=== PATIENT | female | born 1945 | race Caucasian/White ===

== ENCOUNTER → 2019-03-15 | Outpatient (CLI) | payer MEDICARE ==
--- NOTE | 2019-03-15 10:50 | KCIC ---
MRI Lumbar Spine without contrast History: Low back pain, radiculopathy, bilateral hip pain Technique: Multiplanar, multi sequential noncontrast MR imaging was performed of the lumbar spine. Comparison: None Findings: Lumbar vertebral body stature is maintained. There is negligible anterior spondylolisthesis at L3-4. Conus terminates at the superior aspect of L1. There is variable mild degenerative disc disease L2-3 through L4-5, mild disc desiccation L5-S1 and L1-2. There is hemangioma of the left L3 vertebral body. There are annular tears anteriorly at L2-3 and posteriorly at L2-3 and L3-4. There is very mild amorphous edema of the right L3 and L4 pedicles probably reactive/degenerative in etiology. There is right extrarenal pelvis/pelviectasis. L1-L2: This level was not included on the axial images, neural foramina and spinal canal overall adequate. L2-L3: There is negligible disc osteophyte complex and bulge, mild indentation upon the ventral thecal sac greater in the far lateral recesses left greater than right. There is prominence of posterior epidural fat centrally. There is mild facet degenerative change and buckling of the ligamentum flavum. Spinal canal is overall adequate. Neural foramina are adequate. L3-L4: There is prominence of posterior epidural fat centrally. There is mild to moderate left facet degenerative change, minimally on the right. There is mild buckling of the ligamentum flavum. There is negligible disc osteophyte complex and bulge. Neural foramina are adequate. There is mild attenuation of the thecal sac from posterior epidural lipomatosis. L4-L5: There is negligible disc osteophyte complex. There is mild buckling of the ligamentum flavum. There is mild left facet hypertrophic change. There is very mild narrowing of the far left lateral recess. Neural foramina are adequate. L5-S1: Spinal canal and neural foramina are adequate. There is negligible disc osteophyte complex. There is minimal facet degenerative change greater on the left. Impression: 1. There is no significant lumbar spinal stenosis or neural foramina compromise. There is multilevel mild degenerative disc disease L2-3 through L4-5, very mild spondylosis. There is multilevel facet degenerative change, negligible anterior spondylolisthesis L3-4. Electronically signed by: Kee Mcrae MD (03/15/2019 10:47 AM) [id number]
== END | disposition home or self-care (01) ==
LOC: KCIC MRI 09:17
PROVIDERS: ATTEND Family Medicine
DX: M51.16 Intervertebral disc disorders with radiculopathy, lumbar region (principal); M47.26 Other spondylosis with radiculopathy, lumbar region; M89.38 Hypertrophy of bone, other site
CPT/HCPCS: 72148

== ENCOUNTER → 2019-03-30 | Outpatient (CLI) | payer MEDICARE, BC ==
--- NOTE | 2019-03-30 12:06 | KCIC ---
DUPLEX LOWER EXTREMITY BILAT Indication: Hypertension. Hyperlipidemia Comparison: None. Procedure: Real-time grayscale, color flow Doppler, and Doppler spectral waveform analysis of the arterial system of the lower extremity is performed. Findings: Monophasic waveforms throughout the bilateral lower extremity arterial system. No evidence of velocity elevation. Atheromatous plaque throughout the bilateral lower extremities. IMPRESSION: 1. Monophasic waveforms throughout the bilateral lower extremity arterial system, indicating proximal stenosis. Electronically signed by: Ramez Chavez DO (03/30/2019 12:03 PM) [facility]
--- NOTE | 2019-03-30 12:10 | KCIC ---
SCAN OF ABDOMINAL AORTA, RENAL BILAT RENAL DUPLEX CO History: Hypertension. Hyperlipidemia Comparison: None. Technique: Multiple grayscale, color flow, and Doppler spectral waveform analysis images of the abdominal aorta and renal arteries were obtained. Findings: Abdominal aorta peak systolic velocity: 71.3 cm/sec. Right main renal artery peak systolic velocity: 177 cm/sec. Right renal artery to aorta ratio: 2.48 Left main renal artery peak systolic velocity: 164 cm/sec. Left renal artery to aorta ratio: 2.3 Renal veins are patent. IVC unremarkable. The right kidney measures 11.3 x 5 x 5.4 cm. The left kidney measures 12.1 x 4.9 x 6.2 cm. Kidneys are normal in echotexture. No hydronephrosis. Elevated bilateral renal artery resistive indices 0.8 on the right and 0.82 on the left Proximal aorta measures 2.4 cm distal aorta measures 2.37 m. The mid aorta is not well seen due to overlying bowel gas. Aorta bifurcation not well evaluated due to overlying bowel gas. Atheromatous calcification throughout the imaged aorta. Increased hepatic echotexture incidentally noted. IMPRESSION: 1. No evidence of renal artery stenosis. 2. Atheromatous calcification throughout the nonaneurysmal abdominal aorta. 3. Increased hepatic echotexture, may indicate steatosis. Electronically signed by: Ramez Chavez DO (03/30/2019 12:07 PM) [facility]
== END | disposition home or self-care (01) ==
LOC: KCIC US 07:57
PROVIDERS: ATTEND Family Medicine
DX: I70.293 Other atherosclerosis of native arteries of extremities, bilateral legs (principal); I70.0 Atherosclerosis of aorta; I10 Essential (primary) hypertension; E78.5 Hyperlipidemia, unspecified
CPT/HCPCS: 76770; 93925

== ENCOUNTER → 2019-06-29 | Outpatient (CLI) | payer MEDICARE, BC ==
[~2019-06-29] MED LIST: DILT240C33 PO; HYDR12.58 PO; IOHEXOL 300 MG/ML 100ML VIAL. IV ONE; LOSA-73 PO
--- NOTE | 2019-06-29 15:45 | KCIC ---
CT angiography of the abdomen, pelvis, and bilateral lower extremities 06/29/2019 INDICATION: Peripheral vascular disease. Claudication. Ultrasound evaluation suggesting aortoiliac stenosis. TECHNIQUE: Multidetector CT imaging of the abdomen, pelvis, lower extremities was performed following the administration of IV contrast. 3-D reconstructions of abdominal, pelvic, lower extremity vasculature were created on an independent workstation and reviewed. FINDINGS: Visualized thoracic aorta is unremarkable. No evidence of abdominal aortic aneurysm or dissection is seen. The celiac artery is patent. Mild stenosis of the superior mesenteric artery is seen. Calcification is seen at the ostia of the renal arteries. The bilateral renal arteries however remain patent. The inferior abdominal aorta is circumferentially calcified. Probable mild stenosis at the origin of the TASHI is seen. TASHI is otherwise patent. There is dense calcification in the inferior most abdominal aorta, , with dense calcification at the ostia of the bilateral common iliac arteries. 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 The right common iliac artery remains occluded to the level of the internal iliac. Right internal iliac artery demonstrates mild proximal stenosis. Likely retrograde flow fills right external iliac artery which is patent. Right common femoral artery is patent. Profunda artery is patent. Right SFA is patent. Poor contrast opacification limits evaluation below. This is likely secondary to the aforementioned iliac occlusive disease. No definitive high-grade stenosis or occlusion is seen in the popliteal artery proximal tibial vessels the right. Similarly on the left iliac artery is occluded to the level of the internal iliac artery which is small in caliber but appears to be patent. Left external iliac artery is small in caliber remains patent. Left common femoral artery is patent. Left profunda artery is patent. Mild stenosis involving the proximal left SFA appears be present. Left SFA is patent adductor canal. Again contrast opacification of the artery is poor. Dense calcification of the popliteal artery thickening is seen which may represent mild to moderate stenosis. Nonvascular findings: The liver is low attenuation. Hepatic steatosis excluded. Possible small adrenal adenomas noted bilaterally. No bowel obstruction is seen. Diffuse colonic diverticulosis is noted without evidence of acute inflammatory change. Bladder is grossly unremarkable.. No free air seen in the pelvis. No acute osseous changes are identified. IMPRESSION: 1. 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 2. Dense calcification possible moderate stenosis left popliteal artery 3. Limited evaluation popliteal arteries secondary to poor inflow 4. Mild stenosis of the SMA, and possibly the TASHI CT DOSING PQRS STATEMENT: One or more of the following individualized dose reduction techniques were utilized for this examination: 1. Automated exposure control 2. Adjustment of the mA and/or kV according to patient size 3. Use of iterative reconstruction technique Electronically signed by: Gerry Ware MD (06/29/2019 3:43 PM) [id number]
== END | disposition home or self-care (01) ==
LOC: KCIC CT 12:53
PROVIDERS: ATTEND Specialist
DX: I74.5 Embolism and thrombosis of iliac artery (principal); I70.293 Other atherosclerosis of native arteries of extremities, bilateral legs; M79.89 Other specified soft tissue disorders; I70.1 Atherosclerosis of renal artery
CPT/HCPCS: 75635; 82565; Q9967